=== PATIENT | male | born 1965 | race Caucasian/White ===

== ENCOUNTER 2019-02-11 11:02 | Emergency (ER) | payer OTHER ==
[~2019-02-11] VITALS: Ht 175.3 cm; Wt 117.9 kg
--- NOTE | 2019-02-11 11:36 | NUR ---
Patient discharged to home in stable conditon & brisk steady gait. Written and verbal after care instructions given to patient. Patient verbalizes understanding & compliance of instructions.
== END 2019-02-11 11:39 | disposition home or self-care (01) ==
LOC: ER 11:02
DX: B34.9 Viral infection, unspecified (principal); F17.290 Nicotine dependence, other tobacco product, uncomplicated
CPT/HCPCS: A4663

== ENCOUNTER 2019-05-24 22:00 | Emergency (ER) | payer SELFPAY ==
[~2019-05-24] VITALS: Ht 177.8 cm; Wt 72.6 kg
--- NOTE | 2019-05-24 22:11 | NUR ---
Patient after being triaged refused to see MD stating "I feel ok now. I don't want to see thr ERMD anymore." Patient was traiged but no seen by ERMD.
== END 2019-05-24 22:20 | disposition left against medical advice (07) ==
LOC: ER 22:03
DX: Z75.3 Unavailability and inaccessibility of health-care facilities (principal)
CPT/HCPCS: A4663

== ENCOUNTER 2021-05-30 21:07 | Emergency (ER) | payer OTHER ==
[~2021-05-30] VITALS: Ht 177.8 cm; Wt 117.9 kg
--- NOTE | 2021-05-30 21:10 | NUR ---
Pt ambulated to ER c/o feeling short of breath for x 3-4 days, states he is out of his albuterol inhaler. No SOB or labored breathing noted. Denies CP/pressure. Afebrile. A/O x4, no GI/ distress. Clear speech, complete sentences.
--- NOTE | 2021-05-30 21:45 | NUR ---
Dr. Taveras at bedside, MSE in progress.
[2021-05-30] MEDS ORDERED: PRED20TA PO (22:09)
[2021-05-30] MEDS ORDERED: ALBU2.5V38 NEB (22:09)
[2021-05-30] MEDS ORDERED: AZIT250T13 PO (22:09)
[2021-05-30] MEDS ORDERED: ALBU6.7H9 INH (22:09)
--- NOTE | 2021-05-30 22:16 | NUR ---
Patient discharged to home in stable condition. Written and verbal after care instructions given. Patient verbalizes understanding of instructions. Stressed follow up or return to ER for worsening s/s. Steady gait, denies any pain/discomfort upon discharge. No SOB or labored breathing.
[2021-05-30 22:21] VITALS: BP 110/72
== END 2021-05-30 22:22 | disposition home or self-care (01) ==
LOC: ER 21:45
DX: J45.901 Unspecified asthma with (acute) exacerbation (principal); K76.0 Fatty (change of) liver, not elsewhere classified; F17.210 Nicotine dependence, cigarettes, uncomplicated
CPT/HCPCS: A4663

== ENCOUNTER 2021-09-17 08:12 | Emergency (ER) | payer OTHER ==
[~2021-09-17] VITALS: Ht 172.7 cm; Wt 117.9 kg
[~2021-09-17 08:12] MED LIST: ALBU2.5V38 NEB; ALBU6.7H9 INH; AZIT250T13 PO; PRED20TA PO
--- NOTE | 2021-09-17 08:41 | NUR ---
[email or web address], medical screening exam in progress
[2021-09-17] MEDS ORDERED: ALBUTEROL SULFATE 2.5 MG/3 ML NEBU NEB ONE (09:00)
[2021-09-17] MEDS ORDERED: predniSONE 20 MG TABLET PO ONE (09:00)
[2021-09-17] MEDS ORDERED: ALBUTEROL SULFATE 2.5 MG/3 ML NEBU ONE (09:01)
[2021-09-17] MEDS ORDERED: predniSONE 20 MG TABLET ONE ×2 (09:01→09:04)
[2021-09-17] MEDS ORDERED: PRED20TA PO (10:13)
[2021-09-17] MEDS ORDERED: ALBU6.7H9 INH (10:13)
--- NOTE | 2021-09-17 10:23 | NUR ---
COVID PCR swab collected and handed to lab staff Lisandra. Patient discharged to home in stable condition with brisk steady gait. Written and verbal after care instructions given. Patient verbalized understanding and compliance of instructions. Stressed follow up with primary doctor or return to ER for worsening s/s.
[2021-09-17 10:26] VITALS: BP 111/66
== END 2021-09-17 10:23 | disposition home or self-care (01) ==
LOC: ER 08:12
DX: R05.9 Cough, unspecified (principal); R06.02 Shortness of breath; R09.81 Nasal congestion; Z20.822 Contact with and (suspected) exposure to COVID-19; F17.210 Nicotine dependence, cigarettes, uncomplicated; J45.909 Unspecified asthma, uncomplicated
CPT/HCPCS: 99285; 71045; 87426; 36415; 94644; U0003; J7512; A4663

== ENCOUNTER 2022-02-04 09:57 | Emergency (ER) | payer SELFPAY ==
[~2022-02-04] VITALS: Ht 177.8 cm; Wt 113.4 kg
--- NOTE | 2022-02-04 11:30 | NUR ---
Attempted to bring pt back to ER triage area for MSE. Pt not in ER waiting room or outside ER.
--- NOTE | 2022-02-04 11:50 | NUR ---
Pt not found in ER waiting room or outside ER.
== END 2022-02-04 11:57 | disposition left against medical advice (07) ==
LOC: ER 09:57
DX: Z53.21 Procedure and treatment not carried out due to patient leaving prior to being seen by health care provider (principal)

== ENCOUNTER 2022-04-03 09:02 | Emergency (ER) | payer MEDICAID ==
[~2022-04-03] VITALS: Ht 172.7 cm; Wt 117.9 kg
[2022-04-03] MEDS ORDERED: DEXAMETHASONE SOD PHOSPHATE 4 MG INJ IM ONE (09:30)
[2022-04-03] MEDS ORDERED: DEXAMETHASONE SOD PHOSPHATE 10 MG INJ ONE (09:31)
[2022-04-03] MEDS ORDERED: DEXAMETHASONE SOD PHOSPHATE 4 MG INJ ONE (09:36)
--- NOTE | 2022-04-03 09:43 | NUR ---
PT EVALUATED BY DR SHRESTHA; MEDICATED PER MD ORDER; [facility] IM RT GLUT.
[2022-04-03] MEDS ORDERED: AZIT250T13 PO (11:00)
[2022-04-03] MEDS ORDERED: ALBU18HF2 INH (11:01)
[2022-04-03] MEDS ORDERED: PRED20TA PO (11:02)
[2022-04-03] MEDS ORDERED: BENZ-38 PO (11:03)
--- NOTE | 2022-04-03 11:31 | NUR ---
Patient discharged to home in stable condition. Written and verbal after care instructions given. Patient verbalizes understanding of instructions. Stressed follow up or return to ER for worsening s/s.
== END 2022-04-03 11:31 | disposition home or self-care (01) ==
LOC: ER 09:02
DX: J20.9 Acute bronchitis, unspecified (principal); F17.210 Nicotine dependence, cigarettes, uncomplicated; Z20.822 Contact with and (suspected) exposure to COVID-19
CPT/HCPCS: 99284; 71046; 87426; 99406; 87804 ×2; 96372; J1100; A4663

== ENCOUNTER 2022-04-23 15:25 | Emergency (ER) | payer MEDICAID ==
[~2022-04-23] VITALS: Ht 172.7 cm; Wt 117.9 kg
[~2022-04-23 15:25] MED LIST changes: +ALBU18HF2 INH; +BENZ-38 PO
[2022-04-23] MEDS ORDERED: AMOX-430 PO (16:26)
[2022-04-23] MEDS ORDERED: BENZ-13 PO (16:26)
[2022-04-23] MEDS ORDERED: CARB15DR63 EACH EAR (16:26)
== END 2022-04-23 16:36 | disposition home or self-care (01) ==
LOC: ER 15:25
DX: H92.02 Otalgia, left ear (principal); J02.9 Acute pharyngitis, unspecified; R05.9 Cough, unspecified; Z80.8 Family history of malignant neoplasm of other organs or systems; Z86.16 Personal history of COVID-19; F17.210 Nicotine dependence, cigarettes, uncomplicated
CPT/HCPCS: A4663

== ENCOUNTER 2022-07-18 22:43 | Emergency (ER) | payer MEDICAID ==
[~2022-07-18] VITALS: Ht 177.8 cm; Wt 122.5 kg
[~2022-07-18 22:43] MED LIST changes: +AMOX-430 PO; +BENZ-13 PO; +CARB15DR63 EACH EAR
--- NOTE | 2022-07-18 22:59 | NUR ---
Urine sample sent to the lab.
--- NOTE | 2022-07-18 23:24 | NUR ---
Dr. Taveras at bedside. MSE in progress.
[2022-07-18 23:40] LABS: *BILIRUBIN,URIN NEGATIVE (NEGATIVE); *BLOOD, URINE 3+ (NEGATIVE); *CLARITY,URINE CLEAR (CLEAR); *COLOR,URINE YELLOW (YELLOW); *KETONES,URINE NEGATIVE (NEGATIVE); *UROBILINOGEN,URINE 0.2 E.U./dl (NORMAL); LEUKOCYTE ESTERASE ,URINE NEGATIVE (NEGATIVE); NITRITE, URINE NEGATIVE (NEGATIVE); PH,URINE 6.5 (5.0-8.0); UGLUCOSE NEGATIVE (NEGATIVE)
[2022-07-18 23:42] LABS: BACTERIA,URINE FEW /HPF (NONE SEEN); SQUAMOUS EPITHELIAL CELL,UR FEW /HPF (NONE SEEN); WBC,URINE 0-3 /HPF (0-3)
[2022-07-18] MEDS ORDERED: SULF1TAB48 PO (23:58)
[2022-07-18] MEDS ORDERED: ALBU6.7H9 INH (23:58)
[2022-07-18] MEDS ORDERED: SULFAMETH/TRIMETH 800/160 MG TABLET ONE (23:59)
[2022-07-19] MEDS ORDERED: SULFAMETH/TRIMETH 800/160 MG TABLET PO ONE
--- NOTE | 2022-07-19 00:10 | NUR ---
Patient a/o x 4. NAD noted. Ambulatory with a steady gait. All belongings with patient. Patient discharged to home in stable condition. Written and verbal after care instructions given. Patient verbalizes understanding of instructions. Stressed follow up or return to ER for worsening s/s.
[2022-07-19 00:13] VITALS: BP 139/85
== END 2022-07-19 00:14 | disposition home or self-care (01) ==
LOC: ER 22:43
DX: R31.9 Hematuria, unspecified (principal); F17.210 Nicotine dependence, cigarettes, uncomplicated; Z71.6 Tobacco abuse counseling; Z79.2 Long term (current) use of antibiotics; Z79.899 Other long term (current) drug therapy
CPT/HCPCS: A4663

== ENCOUNTER 2022-12-05 16:25 | Emergency (ER) | payer BC, OTHER ==
[~2022-12-05] VITALS: Ht 177.8 cm; Wt 123.8 kg
[~2022-12-05 16:25] MED LIST changes: +SULF1TAB48 PO
[2022-12-05 16:57] LABS: BASOPHILS # (AUTO) 0.1 K/UL (0.0-0.2); BASOPHILS % (AUTO) 0.6 % (0.0-2.0); EOSINOPHILS # (AUTO) 0.1 K/uL (0.0-0.7); EOSINOPHILS % (AUTO) 1.1 % (0.0-7.0); HEMATOCRIT 39.3 % (36.7-47.1); LYMPHOCYTES # (AUTO) 2.1 K/uL (0.8-4.8); LYMPHOCYTES % (AUTO) 20.6 % (20.5-51.5); MEAN CORPUSCULAR HEMOGLOBIN 26.7 uug (23.8-33.4); MEAN CORPUSCULAR HGB CONC 33 g/dL (32.5-36.3); MEAN CORPUSCULAR VOLUME 80.4 fL (73.0-96.2); MONOCYTES # (AUTO) 0.6 K/uL (0.1-1.30); MONOCYTES % (AUTO) 5.7 % (0.0-11.0); NEUTROPHILS # (AUTO) 7.4 K/uL (1.8-8.9); PLATELET COUNT (AUTO) 220 K/uL (152-348); RED BLOOD CELL COUNT(AUTO) 4.88 MIL/uL (4.06-5.63); RED CELL DISTRIBUTION WIDTH 13.8 % (12.1-16.2); WHITE BLOOD COUNT (AUTO) 10.3 K/uL (3.6-10.2)
[2022-12-05 17:17] LABS: ALBUMIN 3.4 g/dL (3.4-5.0); BILIRUBIN,DIRECT 0.1 mg/dL (0.0-0.2); BILIRUBIN,TOTAL 0.4 mg/dL (0.2-1.0); CALCIUM 9.1 mg/dL (8.5-10.1); POTASSIUM 3.6 mmol/L (3.5-5.1); TOTAL PROTEIN, SERUM 6.8 g/dL (6.4-8.2)
[2022-12-05 17:19] LABS: DIFFERENTIAL COMMENT 1
[2022-12-05] MEDS ORDERED: FLUT16SP16 BNOSTRILS (17:51)
[2022-12-05] MEDS ORDERED: PSEU120T83 PO (17:51)
[2022-12-05] MEDS ORDERED: FEXO-25 PO (17:51)
[2022-12-05] MEDS ORDERED: MECL-159 PO (17:51)
[2022-12-05 18:21] VITALS: BP 117/72; TEMP 97.8; O2SAT 97
== END 2022-12-05 18:24 | disposition home or self-care (01) ==
LOC: ER 16:37
DX: R42 Dizziness and giddiness (principal); F17.210 Nicotine dependence, cigarettes, uncomplicated; Z79.899 Other long term (current) drug therapy; Z79.2 Long term (current) use of antibiotics
CPT/HCPCS: 36415; 70450; 85025; 93005; A4663

== ENCOUNTER 2022-12-13 13:25 | Inpatient (IN) | payer BC, OTHER ==
[~2022-12-13] VITALS: Ht 177.8 cm; Wt 120.2 kg
[~2022-12-13 13:25] MED LIST changes: +FEXO-25 PO; +FLUT16SP16 BNOSTRILS; +MECL-159 PO; +PSEU120T83 PO
[2022-12-13 14:48] LABS: BASOPHILS # (AUTO) 0.2 K/UL (0.0-0.2); BASOPHILS % (AUTO) 1.6 % (0.0-2.0); EOSINOPHILS # (AUTO) 0.1 K/uL (0.0-0.7); EOSINOPHILS % (AUTO) 0.8 % (0.0-7.0); HEMATOCRIT 41.8 % (36.7-47.1); HEMOGLOBIN 13.4 g/dL (12.5-16.3); LYMPHOCYTES # (AUTO) 1.9 K/uL (0.8-4.8); LYMPHOCYTES % (AUTO) 12.5 % (20.5-51.5); MEAN CORPUSCULAR HEMOGLOBIN 25.8 uug (23.8-33.4); MEAN CORPUSCULAR HGB CONC 32 g/dL (32.5-36.3); MEAN CORPUSCULAR VOLUME 80.6 fL (73.0-96.2); MONOCYTES # (AUTO) 1.3 K/uL (0.1-1.30); MONOCYTES % (AUTO) 8.8 % (0.0-11.0); NEUTROPHILS # (AUTO) 11.5 K/uL (1.8-8.9); NEUTROPHILS % (AUTO) 76.3 % (38.5-71.5); PLATELET COUNT (AUTO) 254 K/uL (152-348); RED BLOOD CELL COUNT(AUTO) 5.18 MIL/uL (4.06-5.63); WHITE BLOOD COUNT (AUTO) 15.1 K/uL (3.6-10.2)
[2022-12-13 14:52] LABS: DIFFERENTIAL COMMENT 1
[2022-12-13 14:58] LABS: CALCIUM 8.9 mg/dL (8.5-10.1); CARBON DIOXIDE 26 mmol/L (21-32); CHLORIDE 101 mmol/L (98-107); CREATININE 1.1 mg/dL (0.6-1.3); GLUCOSE 118 mg/dL (74-106); POTASSIUM 3.7 mmol/L (3.5-5.1); SODIUM SERUM 137 mmol/L (136-145); UREA NITROGEN, BLOOD 14 mg/dL (7-18)
[2022-12-13] MEDS ORDERED: IV NORMAL SALINE 1000 ML BAG IV ONE (15:00)
[2022-12-13] MEDS ORDERED: CEFTRIAXONE 2 G in IV DEXTROSE 5% 100 ML IV ONE (15:00)
[2022-12-13 15:06] LABS: ALANINE AMINOTRANSFERASE 27 U/L (16-63); ALBUMIN 3.5 g/dL (3.4-5.0); ALKALINE PHOSPHATASE 69 U/L (50-136); ASPARTATE AMINOTRANSFERASE 10 U/L (15-37); BILIRUBIN,DIRECT 0.2 mg/dL (0.0-0.2); TOTAL PROTEIN, SERUM 7.8 g/dL (6.4-8.2)
[2022-12-13 15:45] LABS: *BILIRUBIN,URIN NEGATIVE (NEGATIVE); *BLOOD, URINE 3+ (NEGATIVE); *COLOR,URINE YELLOW (YELLOW); *KETONES,URINE NEGATIVE (NEGATIVE); LEUKOCYTE ESTERASE ,URINE 1+ (NEGATIVE); NITRITE, URINE NEGATIVE (NEGATIVE); UGLUCOSE NEGATIVE (NEGATIVE)
[2022-12-13 15:49] LABS: *PROTEIN,URINE 3+ (NEGATIVE)
[2022-12-13 15:50] LABS: *CLARITY,URINE CLOUDY (CLEAR)
[2022-12-13 16:15] LABS: BACTERIA,URINE MANY /HPF (NONE SEEN); RBC,URINE TNTC /HPF (0-3); SQUAMOUS EPITHELIAL CELL,UR FEW /HPF (NONE SEEN); WBC,URINE TNTC /HPF (0-3)
[2022-12-13] MEDS ORDERED: ONDANSETRON 4 MG/2 ML VIAL IV PRN (17:45)
[2022-12-13] MEDS ORDERED: REMEDY ESSENTIAL ZINC PASTE 113 GM TP PRN (17:45)
[2022-12-13] MEDS ORDERED: MAGNESIUM HYDROXIDE 30 ML LIQUID UDC PO PRN (17:45)
[2022-12-13 23:28] VITALS: O2SAT 97
[2022-12-13] MEDS: ALBUTEROL SULFATE 2.5 MG/3 ML NEBU NEB SCH (23:28)
[2022-12-14] MEDS: ACETAMINOPHEN 325 MG TABLET PO PRN ×2 (03:15→14:02)
[2022-12-14] MEDS: ALBUTEROL SULFATE 2.5 MG/3 ML NEBU NEB SCH ×3 (03:30→11:30)
[2022-12-14 03:38] VITALS: O2SAT 97
[2022-12-14 06:33] LABS: BASOPHILS # (AUTO) 0.1 K/UL (0.0-0.2); BASOPHILS % (AUTO) 0.4 % (0.0-2.0); EOSINOPHILS # (AUTO) 0.1 K/uL (0.0-0.7); HEMATOCRIT 36.9 % (36.7-47.1); HEMOGLOBIN 12.2 g/dL (12.5-16.3); LYMPHOCYTES # (AUTO) 2.2 K/uL (0.8-4.8); LYMPHOCYTES % (AUTO) 18.3 % (20.5-51.5); MEAN CORPUSCULAR HEMOGLOBIN 26.6 uug (23.8-33.4); MEAN CORPUSCULAR HGB CONC 33 g/dL (32.5-36.3); MEAN CORPUSCULAR VOLUME 80.6 fL (73.0-96.2); MONOCYTES # (AUTO) 1.3 K/uL (0.1-1.30); MONOCYTES % (AUTO) 11.1 % (0.0-11.0); NEUTROPHILS # (AUTO) 8.2 K/uL (1.8-8.9); NEUTROPHILS % (AUTO) 69.2 % (38.5-71.5); PLATELET COUNT (AUTO) 220 K/uL (152-348); RED BLOOD CELL COUNT(AUTO) 4.59 MIL/uL (4.06-5.63); RED CELL DISTRIBUTION WIDTH 14.1 % (12.1-16.2); WHITE BLOOD COUNT (AUTO) 11.8 K/uL (3.6-10.2)
[2022-12-14 06:40] LABS: DIFFERENTIAL COMMENT 1
[2022-12-14 06:51] LABS: CALCIUM 8.8 mg/dL (8.5-10.1); CREATININE 1.1 mg/dL (0.6-1.3); MAGNESIUM 1.9 mg/dL (1.8-2.4); PHOSPHOROUS 3.2 mg/dL (2.5-4.9); POTASSIUM 3.8 mmol/L (3.5-5.1)
[2022-12-14] MEDS: FLUTICASONE PROP NASAL SPRAY 16 GM BOTTLE NS SCH (09:10)
[2022-12-14 12:00] VITALS: BP 113/79; TEMP 98.3; O2SAT 99
[2022-12-14] MEDS: CEFTRIAXONE 2 G in IV DEXTROSE 5% 100 ML IV SCH (14:02)
[2022-12-14] MEDS ORDERED: ALBUTEROL SULFATE 2.5 MG/3 ML NEBU NEB PRN (14:45)
[2022-12-14 16:00] VITALS: BP 123/78; TEMP 98.3; O2SAT 98
[2022-12-14 21:00] VITALS: BP 118/64; TEMP 98.5; O2SAT 96
[2022-12-14] MEDS ORDERED: TRAZODONE 100 MG TABLET PO SCH (21:00)
[2022-12-14] MEDS: TAMSULOSIN HCL 0.4 MG CAP.SR.24H PO SCH (21:04)
[2022-12-14] MEDS: ZOLPIDEM 5 MG TABLET PO SCH (21:04)
[2022-12-15 07:18] LABS: BASOPHILS % (AUTO) 0.4 % (0.0-2.0); EOSINOPHILS # (AUTO) 0.2 K/uL (0.0-0.7); HEMATOCRIT 37.2 % (36.7-47.1); HEMOGLOBIN 12.3 g/dL (12.5-16.3); LYMPHOCYTES # (AUTO) 1.8 K/uL (0.8-4.8); LYMPHOCYTES % (AUTO) 18.1 % (20.5-51.5); MEAN CORPUSCULAR HEMOGLOBIN 26.5 uug (23.8-33.4); MEAN CORPUSCULAR HGB CONC 33 g/dL (32.5-36.3); MEAN CORPUSCULAR VOLUME 80.4 fL (73.0-96.2); MONOCYTES # (AUTO) 0.9 K/uL (0.1-1.30); MONOCYTES % (AUTO) 8.6 % (0.0-11.0); NEUTROPHILS # (AUTO) 7.2 K/uL (1.8-8.9); NEUTROPHILS % (AUTO) 70.9 % (38.5-71.5); PLATELET COUNT (AUTO) 215 K/uL (152-348); RED BLOOD CELL COUNT(AUTO) 4.63 MIL/uL (4.06-5.63); RED CELL DISTRIBUTION WIDTH 13.8 % (12.1-16.2); WHITE BLOOD COUNT (AUTO) 10.2 K/uL (3.6-10.2)
[2022-12-15 07:25] LABS: DIFFERENTIAL COMMENT 1
[2022-12-15 07:49] LABS: CALCIUM 8.8 mg/dL (8.5-10.1); CREATININE 0.9 mg/dL (0.6-1.3); POTASSIUM 3.6 mmol/L (3.5-5.1)
[2022-12-15] MEDS: FLUTICASONE PROP NASAL SPRAY 16 GM BOTTLE NS SCH (09:24)
[2022-12-15] MEDS: ACETAMINOPHEN 325 MG TABLET PO PRN (10:31)
[2022-12-15 12:00] VITALS: BP 127/71; TEMP 98
[2022-12-15] MEDS: CEFTRIAXONE 2 G in IV DEXTROSE 5% 100 ML IV SCH (14:29)
[2022-12-15 16:00] VITALS: BP 135/80; TEMP 97.7; O2SAT 98
[2022-12-15] MEDS: DOCUSATE SODIUM 100 MG CAPSULE PO SCH ×2 (20:34→20:40)
[2022-12-15] MEDS: TAMSULOSIN HCL 0.4 MG CAP.SR.24H PO SCH (20:34)
[2022-12-15] MEDS: ZOLPIDEM 5 MG TABLET PO SCH (22:05)
[2022-12-16 06:14] LABS: BASOPHILS # (AUTO) 0.1 K/UL (0.0-0.2); BASOPHILS % (AUTO) 0.5 % (0.0-2.0); EOSINOPHILS # (AUTO) 0.3 K/uL (0.0-0.7); EOSINOPHILS % (AUTO) 2.6 % (0.0-7.0); HEMATOCRIT 36.5 % (36.7-47.1); HEMOGLOBIN 12.4 g/dL (12.5-16.3); LYMPHOCYTES # (AUTO) 1.8 K/uL (0.8-4.8); LYMPHOCYTES % (AUTO) 18.3 % (20.5-51.5); MEAN CORPUSCULAR HGB CONC 34 g/dL (32.5-36.3); MEAN CORPUSCULAR VOLUME 79.8 fL (73.0-96.2); MONOCYTES # (AUTO) 0.8 K/uL (0.1-1.30); NEUTROPHILS % (AUTO) 70.6 % (38.5-71.5); PLATELET COUNT (AUTO) 231 K/uL (152-348); RED BLOOD CELL COUNT(AUTO) 4.57 MIL/uL (4.06-5.63); WHITE BLOOD COUNT (AUTO) 9.9 K/uL (3.6-10.2)
[2022-12-16 06:25] LABS: DIFFERENTIAL COMMENT 1
[2022-12-16 06:43] LABS: CALCIUM 8.8 mg/dL (8.5-10.1); CREATININE 0.9 mg/dL (0.6-1.3); MAGNESIUM 2.2 mg/dL (1.8-2.4); POTASSIUM 3.9 mmol/L (3.5-5.1)
[2022-12-16] MEDS: FLUTICASONE PROP NASAL SPRAY 16 GM BOTTLE NS SCH (08:50)
[2022-12-16] MEDS: DOCUSATE SODIUM 100 MG CAPSULE PO SCH (08:50)
[2022-12-16] MEDS: CEFTRIAXONE 2 G in IV DEXTROSE 5% 100 ML IV SCH (14:12)
[2022-12-16] MEDS ORDERED: CEPH500T PO (14:38)
== END 2022-12-16 17:03 | disposition home or self-care (01) | DRG 872 ==
LOC: ER 13:31 → MEDSURG3 20:11
PROVIDERS: ADMIT Nurse Practitioner Family; ATTEND Internal Medicine
DX: A41.9 Sepsis, unspecified organism (principal); N10 Acute pyelonephritis; E66.01 Morbid (severe) obesity due to excess calories; Z68.38 Body mass index [BMI] 38.0-38.9, adult; Z20.822 Contact with and (suspected) exposure to COVID-19; J44.9 Chronic obstructive pulmonary disease, unspecified; B96.89 Other specified bacterial agents as the cause of diseases classified elsewhere; Z98.890 Other specified postprocedural states; Z96.0 Presence of urogenital implants
CPT/HCPCS: 36415; 71045; 83605; 83735; 84100; 84484; 85025; 85730; 87040; 93005; G0378; J0696; J3535; J7040

== ENCOUNTER 2023-04-25 12:30 | Emergency (ER) | payer BC, OTHER ==
[~2023-04-25] VITALS: Ht 177.8 cm; Wt 122.5 kg
[~2023-04-25 12:30] MED LIST changes: -ALBU18HF2 INH; -ALBU2.5V38 NEB; -AMOX-430 PO; -AZIT250T13 PO; -BENZ-13 PO; -BENZ-38 PO; -CARB15DR63 EACH EAR; +CEPH500T PO; +CIPR-262 PO; -MECL-159 PO; -PRED20TA PO; -PSEU120T83 PO; -SULF1TAB48 PO
[2023-04-25] MEDS ORDERED: PRED50TA PO (13:13)
[2023-04-25] MEDS ORDERED: AZIT500T PO (13:13)
[2023-04-25 13:17] VITALS: BP 136/77; O2SAT 98
== END 2023-04-25 13:17 | disposition home or self-care (01) ==
LOC: ER 12:31
DX: J18.9 Pneumonia, unspecified organism (principal); F17.200 Nicotine dependence, unspecified, uncomplicated; J45.909 Unspecified asthma, uncomplicated; Z98.890 Other specified postprocedural states; Z79.899 Other long term (current) drug therapy
CPT/HCPCS: A4606; A4663

== ENCOUNTER 2023-06-27 15:04 | Emergency (ER) | payer BC, OTHER ==
[~2023-06-27] VITALS: Ht 177.8 cm; Wt 122.5 kg
[~2023-06-27 15:04] MED LIST changes: +AZIT500T PO; +PRED50TA PO
[2023-06-27] MEDS ORDERED: AMOX-430 PO (16:07)
[2023-06-27] MEDS ORDERED: PRED20TA PO (16:07)
[2023-06-27] MEDS ORDERED: IPRATROPIUM BROMIDE 0.5 MG/2.5 ML NEBU ONE (16:11)
[2023-06-27] MEDS ORDERED: ALBUTEROL SULFATE 2.5 MG/3 ML NEBU ONE ×2 (16:11→16:15)
[2023-06-27 16:15] VITALS: O2SAT 96
[2023-06-27] MEDS ORDERED: ALBUTEROL SULFATE 2.5 MG/ 0.5 ML NEBU ONE (16:15)
[2023-06-27] MEDS: ALBUTEROL SULFATE 2.5 MG/ 0.5 ML NEBU NEB ONE (16:16)
[2023-06-27] MEDS: IPRATROPIUM BROMIDE 0.5 MG/2.5 ML NEBU NEB ONE (16:16)
[2023-06-27] MEDS ORDERED: PSEU-249 PO (16:21)
[2023-06-27 16:25] VITALS: O2SAT 98
[2023-06-27] MEDS ORDERED: GUAI5SYR4 PO ×2 (16:31→16:44)
[2023-06-27 16:50] VITALS: BP 108/69; O2SAT 98
== END 2023-06-27 17:00 | disposition home or self-care (01) ==
LOC: ER 15:11
DX: J32.9 Chronic sinusitis, unspecified (principal); J45.909 Unspecified asthma, uncomplicated; F17.200 Nicotine dependence, unspecified, uncomplicated; Z98.890 Other specified postprocedural states; Z79.899 Other long term (current) drug therapy
CPT/HCPCS: 94640; A4606; A4663; J3590